=== PATIENT | male | born 1995 | race Caucasian/White ===

== ENCOUNTER 2019-07-30 15:57 | Emergency (ER) | payer SELFPAY ==
[~2019-07-30] VITALS: Ht 185.4 cm; Wt 88.5 kg
[2019-07-30 16:32] VITALS: BP 151/77
[2019-07-30] MEDS ORDERED: LIDOCAINE 1% HCL (LOCAL ANESTH.) INJ 20ML MDV ONE (16:58)
[2019-07-30] MEDS ORDERED: ACETAMINOPHEN/CODEINE#3 (300/30mg) TAB PO ONE (17:15)
== END 2019-07-30 17:52 | disposition home or self-care (01) ==
LOC: ER 15:57
DX: L02.211 Cutaneous abscess of abdominal wall (principal)
CPT/HCPCS: 10060; 99283; J2001

== ENCOUNTER 2019-08-01 13:52 | Emergency (ER) | payer SELFPAY ==
[~2019-08-01] VITALS: Ht 185.4 cm; Wt 88.5 kg
[2019-08-01 14:57] VITALS: BP 134/87
== END 2019-08-01 15:46 | disposition home or self-care (01) ==
LOC: ER 13:52
DX: Z48.00 Encounter for change or removal of nonsurgical wound dressing (principal)